=== PATIENT | male | born 1990 | race Hispanic/Latino ===

== ENCOUNTER 2020-08-14 11:21 | Inpatient (IN) | payer OTHER ==
[~2020-08-14] VITALS: Ht 190.5 cm; Wt 136.1 kg
[2020-08-14 13:44] LABS: HEMATOCRIT 44.5 % (42-54); LYMPHOCYTES % (AUTO) 34.4 % (21.0-51.0); MEAN CORPUSCULAR HEMOGLOBIN 30.5 pg (27.0-33.0); MEAN CORPUSCULAR HGB CONC 37.1 g/dL (32.0-36.0); MEAN CORPUSCULAR VOLUME 82.3 fL (79-99); MONOCYTES % (AUTO) 7.8 % (3.0-13.0); NEUTROPHILS % (AUTO) 57.6 % (40.0-77.0); PLATELET COUNT (AUTO) 149 K/uL (130-400); RED BLOOD CELL COUNT(AUTO) 5.41 MIL/uL (4.50-6.20); RED CELL DISTRIBUTION WIDTH 11.8 % (11.0-15.5); WHITE BLOOD COUNT (AUTO) 4.5 K/uL (4.8-10.8)
[2020-08-14 13:51] LABS: INR 1.07 (0.85-1.15); PROTHROMBIN TIME 11.4 SEC (9.6-11.6)
[2020-08-14 13:52] LABS: PARTIAL THROMBOPLASTIN TIME 27.2 SEC (26.3-35.5)
[2020-08-14 13:56] LABS: ALBUMIN 3.8 g/dL (3.5-5.0); BILIRUBIN,TOTAL 1.7 mg/dL (0.2-1.0); POTASSIUM 3.6 mmol/L (3.5-5.1); TOTAL PROTEIN, SERUM 7.4 g/dL (6.0-8.3)
[2020-08-14] MEDS ORDERED: DEXAMETHASONE SOD PHOSPHATE 10MG/ML 1ML VIAL ONE (14:39)
[2020-08-14] MEDS ORDERED: AZITHROMYCIN 250 MG TABLET PO ONE (14:40)
[2020-08-14] MEDS ORDERED: ALBUTEROL INHALER 90MCG/INH IH ONE (14:42)
[2020-08-14] MEDS ORDERED: CEFTRIAXONE SODIUM 1 GM ONE (14:43)
[2020-08-14] MEDS ORDERED: SODIUM CHLORIDE 0.9% 50 ML IV ONE (14:43)
[2020-08-14] MEDS ORDERED: ACETAMINOPHEN-CODEINE 300/30MG TAB ONE (14:43)
[2020-08-14] MEDS ORDERED: INSULIN HUMULIN R 100 UNIT/ML 3ML ONE ×2 (14:44→22:53)
[2020-08-14 14:58] LABS: ABG BASE EXCESS 2.9 mmol/L (-2.0-3.0); ABG HCO3 26.2 mmol/L (21.0-28.0); ABG OXYGEN SATURATION 96.5 % (95.0-99.0); ABG PCO2 36 mmHg (35-48)
[2020-08-14] MEDS ORDERED: DiphenhydrAMINE HCL 50 MG/ML VIAL IV PRN (17:30)
[2020-08-14] MEDS ORDERED: LACTULOSE 20 GM/30 ML UDCUP PO PRN (17:30)
[2020-08-14] MEDS ORDERED: NITROGLYCERIN 0.4 MG SL TAB SL PRN (17:30)
[2020-08-14] MEDS ORDERED: DEXAMETHASONE 4 MG TAB PO SCH (17:30)
[2020-08-14] MEDS ORDERED: DIPHENHYDRAMINE HCL 25 MG CAPSULE PO PRN (17:30)
[2020-08-14] MEDS ORDERED: LACTATED RINGERS 1000ML 1,000 ML IV SCH (17:30)
[2020-08-14] MEDS ORDERED: MAG HYDROX/AL HYDROX/SIMETH ES 30 ML SUSP UDCUP PO PRN (17:30)
[2020-08-14] MEDS ORDERED: AZITHROMYCIN 500MG+NS 250ML 250 ML IV SCH (17:30)
[2020-08-14] MEDS ORDERED: GUAIFENESIN-DM 200/20 MG 10 ML PO PRN (17:30)
[2020-08-14] MEDS ORDERED: CEFTRIAXONE SODIUM 1 GM IV SCH (17:30)
[2020-08-14] MEDS ORDERED: ONDANSETRON HCL 4 MG/2 ML VIAL IV PRN (17:30)
[2020-08-14] MEDS ORDERED: ACETAMINOPHEN 325 MG TAB PO PRN ×2 (17:30)
[2020-08-14] MEDS ORDERED: DEXTROSE 50%-WATER 50 ML DISP.SYRIN IV PRN (18:30)
[2020-08-14] MEDS ORDERED: POTASSIUM CHLORIDE 20MEQ/100ML 100 ML IV PRN ×2 (18:30)
[2020-08-14] MEDS ORDERED: POTASSIUM CHLORIDE 10% ELIXIR 20 MEQ/15 ML UDCUP PO PRN (18:30)
[2020-08-14] MEDS ORDERED: POTASSIUM CHLORIDE 20 MEQ ERTAB PO PRN (18:30)
[2020-08-14] MEDS ORDERED: GLUCAGON 1MG KIT 1 MG ML IM PRN (18:30)
[2020-08-14] MEDS ORDERED: ACETYLCYSTEINE 600 MG CAPSULE PO SCH (21:00)
[2020-08-14] MEDS ORDERED: INSULIN HUMULIN R 100 UNIT/ML 3ML SQ SCH (21:00)
[2020-08-14 21:57] LABS: APPEARANCE,URINE Clear (CLEAR); BILIRUBIN,URINE Negative (NEGATIVE); COLOR,URINE Yellow (YELLOW); GLUCOSE, URINE (UA) >=1000 mg/dL (NEGATIVE); KETONES,URINE >=80 mg/dL (NEGATIVE); LEUKOCYTE ESTERASE ,URINE Negative (NEGATIVE); NITRATE,URINE Negative (NEGATIVE); OCCULT BLOOD,URINE Negative (NEGATIVE); PH,URINE 5.5 (5.0-8.0); PROTEIN,URINE Negative (NEGATIVE)
[2020-08-14 22:02] LABS: BACTERIA,URINE None Seen /HPF (None Seen); MUCUS,URINE Few LPF (None Seen); RBC,URINE 0-1 /HPF (0-1); SQUAMOUS EPITHELIAL CELL,UR Few /HPF (0-2); WBC,URINE 0-1 /HPF (0-1)
[2020-08-14] MEDS ORDERED: ACETYLCYSTEINE 600 MG CAPSULE ONE (22:14)
[2020-08-14] MEDS ORDERED: AZITHROMYCIN 500MG+NS 250ML 250 ML IV ONE (22:14)
[2020-08-14] MEDS ORDERED: ACETAMINOPHEN 325 MG TAB ONE (23:05)
[2020-08-15 04:03] LABS: BASOPHILS % (AUTO) 0.2 % (0.0-5.0); HEMATOCRIT 39.4 % (42-54); MEAN CORPUSCULAR HEMOGLOBIN 30.4 pg (27.0-33.0); MEAN CORPUSCULAR HGB CONC 37.3 g/dL (32.0-36.0); MEAN CORPUSCULAR VOLUME 81.4 fL (79-99); MONOCYTES % (AUTO) 5.7 % (3.0-13.0); NEUTROPHILS % (AUTO) 74.7 % (40.0-77.0); PLATELET COUNT (AUTO) 144 K/uL (130-400); RED BLOOD CELL COUNT(AUTO) 4.84 MIL/uL (4.50-6.20); RED CELL DISTRIBUTION WIDTH 11.6 % (11.0-15.5); WHITE BLOOD COUNT (AUTO) 5.1 K/uL (4.8-10.8)
[2020-08-15] MEDS ORDERED: LACTATED RINGERS 1000ML 1,000 ML IV ONE (04:05)
[2020-08-15 04:25] LABS: ALANINE AMINOTRANSFERASE 98 U/L (12-78); ALBUMIN 3.2 g/dL (3.5-5.0); ASPARTATE AMINOTRANSFERASE 58 U/L (10-37); BILIRUBIN,TOTAL 1.4 mg/dL (0.2-1.0); CARBON DIOXIDE 29 mmol/L (21-32); CHLORIDE 95 mmol/L (101-111); CREATININE 0.9 mg/dL (0.5-1.5); GLOMERULAR FILTR. RATE CALC 105 mL/min (>60); GLUCOSE,RANDOM 301 mg/dL (70-105); LACTATE DEHYDROGENASE 306 U/L (81-234); POTASSIUM 4.2 mmol/L (3.5-5.1); SODIUM SERUM 134 mmol/L (136-145); TOTAL PROTEIN, SERUM 7.2 g/dL (6.0-8.3); UREA NITROGEN, BLOOD 17 mg/dL (7-18)
[2020-08-15] MEDS ORDERED: DEXAMETHASONE SOD PHOSPHATE 10MG/ML 1ML VIAL ONE (08:26)
[2020-08-15] MEDS ORDERED: ASCORBIC ACID 500 MG TAB ONE (08:27)
[2020-08-15] MEDS ORDERED: ENOXAPARIN SODIUM 40 MG/0.4 ML SYRINGE SQ ONE (08:27)
[2020-08-15] MEDS ORDERED: ZINC SULFATE 220 CAPSULE ONE (08:27)
[2020-08-15] MEDS ORDERED: ACETYLCYSTEINE 600 MG CAPSULE ONE (08:27)
[2020-08-15] MEDS ORDERED: INSULIN HUMULIN R 100 UNIT/ML 3ML ONE (08:28)
[2020-08-15] MEDS ORDERED: ENOXAPARIN SODIUM 40 MG/0.4 ML SYRINGE SQ SCH (09:00)
[2020-08-15] MEDS ORDERED: ASCORBIC ACID 500 MG TAB PO SCH (09:00)
[2020-08-15] MEDS ORDERED: ZINC SULFATE 220 CAPSULE PO SCH (09:00)
[2020-08-15] MEDS ORDERED: MELA3TAB69 PO ×2 (11:06→11:17)
[2020-08-15] MEDS ORDERED: DEXA6TAB PO ×2 (11:06→11:17)
[2020-08-15] MEDS ORDERED: METF-444 PO ×2 (11:06→11:17)
[2020-08-15] MEDS ORDERED: ASCO1TAB46 PO ×2 (11:06→11:17)
[2020-08-15] MEDS ORDERED: ZINC50TA15 PO ×2 (11:06→11:17)
[2020-08-17 00:07] LABS: HEPATITIS A ANTIBODY IGM Negative (Negative); HEPATITIS B CORE IGM Negative (Negative); HEPATITIS Bs ANTIGEN SCREEN P Negative (Negative)
== END 2020-08-15 11:58 | disposition home or self-care (01) | DRG 177 ==
LOC: EDH 11:21 → EDHIP 17:21
PROVIDERS: ADMIT Family Medicine; ATTEND Family Medicine
DX: U07.1 COVID-19 (principal); J96.01 Acute respiratory failure with hypoxia; J12.89 Other viral pneumonia; I10 Essential (primary) hypertension; E11.9 Type 2 diabetes mellitus without complications; K59.00 Constipation, unspecified; K76.0 Fatty (change of) liver, not elsewhere classified; R74.8 Abnormal levels of other serum enzymes; R16.2 Hepatomegaly with splenomegaly, not elsewhere classified; T38.0X5A Adverse effect of glucocorticoids and synthetic analogues, initial encounter; Y92.89 Other specified places as the place of occurrence of the external cause; Z79.84 Long term (current) use of oral hypoglycemic drugs
CPT/HCPCS: 36415; 36600; 71045; 71250; 74176; 80053; 80074; 81001; 82550; 82728; 82803; 82948; 83605; 83615; 84145; 84484; 85025; 85378; 85610; 85730; 86140; 86900; 86901; 87040; 87426; 87804; 87880; 93005; 99291; G0378; J0456; J0696; J1100; J1650; J1815; J7120

== ENCOUNTER 2023-02-25 18:08 | Emergency (ER) | payer OTHER ==
[~2023-02-25] VITALS: Ht 190.5 cm; Wt 140.6 kg
[~2023-02-25 18:08] MED LIST: ASCO1TAB46 PO; DEXA6TAB PO; MELA3TAB69 PO; METF-444 PO; ZINC50TA15 PO
[2023-02-25 19:05] LABS: BASOPHILS % (AUTO) 0.3 % (0.0-5.0); EOSINOPHILS % (AUTO) 0.3 % (0.0-8.0); HEMATOCRIT 43.7 % (42-54); LYMPHOCYTES % (AUTO) 23.4 % (21.0-51.0); MEAN CORPUSCULAR HEMOGLOBIN 30.4 pg (27.0-33.0); MEAN CORPUSCULAR HGB CONC 35.7 g/dL (32.0-36.0); MEAN CORPUSCULAR VOLUME 85.2 fL (79-99); NEUTROPHILS % (AUTO) 70.8 % (40.0-77.0); PLATELET COUNT (AUTO) 229 K/uL (130-400); RED BLOOD CELL COUNT(AUTO) 5.13 MIL/uL (4.50-6.20); WHITE BLOOD COUNT (AUTO) 9.6 K/uL (4.8-10.8)
[2023-02-25 19:25] LABS: CREATININE 0.9 mg/dL (0.5-1.5); POTASSIUM 3.6 mmol/L (3.5-5.1)
[2023-02-25 19:39] LABS: ALBUMIN 3.8 g/dL (3.5-5.0); TOTAL PROTEIN, SERUM 7.5 g/dL (6.0-8.3)
[2023-02-25] MEDS ORDERED: CYCL-309 PO (21:43)
[2023-02-25] MEDS ORDERED: NAPR-1180 PO (21:43)
[2023-02-25] MEDS ORDERED: DICL100G31 TP (21:43)
[2023-02-25] MEDS ORDERED: KETOROLAC 30MG VIAL (30MG/ML) ONE (21:47)
[2023-02-25 21:50] VITALS: BP 158/99
[2023-02-25] MEDS ORDERED: KETOROLAC 30MG VIAL (30MG/ML) IM ONE (22:00)
== END 2023-02-25 21:55 | disposition home or self-care (01) ==
LOC: EDH 18:08
DX: M47.22 Other spondylosis with radiculopathy, cervical region (principal); I10 Essential (primary) hypertension; E78.00 Pure hypercholesterolemia, unspecified; Z79.899 Other long term (current) drug therapy; Z98.890 Other specified postprocedural states
CPT/HCPCS: 99285; 71045; 84484; 80053; 85025; 83605; 36415; 72040; 93005; J1885

== ENCOUNTER 2023-03-02 02:58 | Emergency (ER) | payer OTHER ==
[~2023-03-02] VITALS: Ht 190.5 cm; Wt 141.1 kg
[~2023-03-02 02:58] MED LIST changes: +CYCL-309 PO; +DICL100G31 TP; +NAPR-1180 PO
[2023-03-02 03:56] LABS: BASOPHILS % (AUTO) 0.2 % (0.0-5.0); EOSINOPHILS % (AUTO) 0.2 % (0.0-8.0); HEMATOCRIT 44.2 % (42-54); LYMPHOCYTES % (AUTO) 21.2 % (21.0-51.0); MEAN CORPUSCULAR HEMOGLOBIN 31.1 pg (27.0-33.0); MEAN CORPUSCULAR HGB CONC 36.2 g/dL (32.0-36.0); MONOCYTES % (AUTO) 7.5 % (3.0-13.0); NEUTROPHILS % (AUTO) 70.6 % (40.0-77.0); PLATELET COUNT (AUTO) 239 K/uL (130-400); RED BLOOD CELL COUNT(AUTO) 5.14 MIL/uL (4.50-6.20); RED CELL DISTRIBUTION WIDTH 12.2 % (11.0-15.5); WHITE BLOOD COUNT (AUTO) 12.3 K/uL (4.8-10.8)
[2023-03-02] MEDS ORDERED: DIAZEPAM 5 MG/ML 2 ML SYG IVP ONE (04:00)
[2023-03-02 04:07] LABS: CREATININE 0.9 mg/dL (0.5-1.5); POTASSIUM 3.4 mmol/L (3.5-5.1)
[2023-03-02 04:10] LABS: INR 0.95 (0.85-1.15); PROTHROMBIN TIME 11.1 SEC (9.6-11.6)
[2023-03-02 04:11] LABS: ALBUMIN 3.7 g/dL (3.5-5.0); MAGNESIUM 1.7 mg/dL (1.80-2.40); PARTIAL THROMBOPLASTIN TIME 31.1 SEC (26.3-35.5); TOTAL PROTEIN, SERUM 7.2 g/dL (6.0-8.3)
[2023-03-02] MEDS ORDERED: DULA1.5P SQ (05:00)
[2023-03-02] MEDS ORDERED: CHLO25TA3 PO (05:00)
[2023-03-02] MEDS ORDERED: SIMV5TAB58 PO (05:00)
[2023-03-02] MEDS ORDERED: LISINOPRIL 10 MG TABLET PO ONE (05:30)
[2023-03-02] MEDS ORDERED: MAGNESIUM OXIDE 400 MG TABLET PO ONE (05:30)
[2023-03-02 06:07] VITALS: BP 143/86
[2023-03-02 07:27] LABS: APPEARANCE,URINE CLEAR (CLEAR); BILIRUBIN,URINE NEGATIVE (NEGATIVE); COLOR,URINE YELLOW (YELLOW); GLUCOSE, URINE (UA) NEGATIVE (NEGATIVE); KETONES,URINE NEGATIVE (NEGATIVE); LEUKOCYTE ESTERASE ,URINE NEGATIVE Leu/uL (NEGATIVE); NITRATE,URINE NEGATIVE (NEGATIVE); OCCULT BLOOD,URINE NEGATIVE (NEGATIVE); PH,URINE 5.5 (5.0-8.0); PROTEIN,URINE NEGATIVE (NEGATIVE); UROBILINOGEN,URINE 0.2 mg/dL (0.2-1.0)
[2023-03-02 07:31] LABS: AMPHET/METH SCREEN,URINE NEGATIVE (NEGATIVE); BARBITURATE SCREEN, URINE NEGATIVE (NEGATIVE); BENZODIAZEPINES SCREEN,URINE NEGATIVE (NEGATIVE); CANNABINOID SCREEN,URINE NEGATIVE (NEGATIVE); COCAINE SCREEN,URINE NEGATIVE (NEGATIVE); OPIATE SCREEN,URINE NEGATIVE (NEGATIVE); PHENCYCLIDINE SCREEN,URINE NEGATIVE (NEGATIVE)
== END 2023-03-02 06:41 | disposition home or self-care (01) ==
LOC: EDH 02:58
DX: R07.89 Other chest pain (principal); I10 Essential (primary) hypertension; M54.12 Radiculopathy, cervical region; E78.00 Pure hypercholesterolemia, unspecified; M54.2 Cervicalgia; Z79.84 Long term (current) use of oral hypoglycemic drugs; Z79.899 Other long term (current) drug therapy; Z98.890 Other specified postprocedural states
CPT/HCPCS: 99285; 96374; 71045; 83735; 84484 ×2; 80053; 80305; 85025; 85610; 85730; 36415; 93005; 81003; J3360